=== PATIENT | female | born 1955 | race African-American/Black ===

== ENCOUNTER 2020-09-30 19:38 | Inpatient (IN) | payer OTHER ==
[2020-09-30] MEDS: SODIUM CHLORIDE 1,000 ML IV SCH (20:09)
[2020-09-30] MEDS ORDERED: ASPIRIN 81 MG CHEWABLE TABLETS PO ONE (20:14)
[2020-09-30] MEDS ORDERED: ASPIRIN 81 MG CHEWABLE TABLETS ONE (20:19)
[2020-09-30 20:39] LABS: BASO % 0.5 % (0-2.0); EOS % 0.6 % (0-4.5); HEMATOCRIT 26.9 % (32.4-45.2); HEMOGLOBIN 8.5 GM/dL (10.7-15.3); LYMPH % 13.3 % (8-40); MCH 26.3 pg (25.7-33.7); MCHC 31.7 g/dl (32.0-36.0); MEAN CELL VOLUME 83.1 fl (80-96); MEAN PLT VOLUME 8.5 fl (7.5-11.1); MONO % 13.4 % (3.8-10.2); NEUT % 72.2 % (42.8-82.8); PLATELET COUNT 250 K/MM3 (134-434); RBC 3.24 M/mm3 (3.60-5.2); RDW 15.1 % (11.6-15.6); WHITE BLOOD COUNT 11.6 K/mm3 (4.0-10.0)
[2020-09-30 20:45] LABS: INR 1.41 (0.83-1.09); PROTHROMBIN TIME (PATIENT) 17.2 SEC (9.7-13.0)
[2020-09-30 20:48] LABS: ACTIVATED PTT 30.6 SECONDS (25.2-36.5)
[2020-09-30 21:00] LABS: CALCIUM 8.4 mg/dL (8.5-10.1)
[2020-09-30 21:01] LABS: ALBUMIN 3.1 g/dl (3.4-5.0); BLOOD UREA NITROGEN 11.5 mg/dL (7-18)
[2020-09-30 21:03] LABS: CHOLESTEROL 239 mg/dL (50-200)
[2020-09-30 21:04] LABS: CREATININE 1.2 mg/dL (0.55-1.3); TRIGLYCERIDES 104 mg/dL (0-150)
[2020-09-30 21:05] LABS: LDL CHOLESTEROL (ONLY SJRH) 144 mg/dL (5-100)
[2020-09-30 21:06] LABS: BILIRUBIN,TOTAL 0.8 mg/dL (0.2-1); HDL CHOLESTEROL 67 mg/dL (40-60); TOT PROT 8.7 g/dl (6.4-8.2)
[2020-10-01] MEDS ORDERED: ARTIFICIAL TEARS (POLYVINYL ALCOHOL) OPTH DROPS OU PRN (05:21)
[2020-10-01 08:58] LABS: BASO % 0.6 % (0-2.0); EOS % 0.7 % (0-4.5); HEMATOCRIT 25.6 % (32.4-45.2); HEMOGLOBIN 8.2 GM/dL (10.7-15.3); LYMPH % 12.5 % (8-40); MCH 26.8 pg (25.7-33.7); MCHC 32.2 g/dl (32.0-36.0); MEAN CELL VOLUME 83.3 fl (80-96); MEAN PLT VOLUME 8.7 fl (7.5-11.1); MONO % 14.6 % (3.8-10.2); NEUT % 71.6 % (42.8-82.8); PLATELET COUNT 231 K/MM3 (134-434); RBC 3.07 M/mm3 (3.60-5.2); RDW 15.1 % (11.6-15.6); WHITE BLOOD COUNT 10.6 K/mm3 (4.0-10.0)
[2020-10-01 09:00] LABS: CORRECTED WBC 0.01 K/mm3
[2020-10-01 09:12] LABS: POTASSIUM 3.9 mmol/L (3.5-5.1)
[2020-10-01 09:14] LABS: ALBUMIN 2.8 g/dl (3.4-5.0); BLOOD UREA NITROGEN 10.9 mg/dL (7-18); MAGNESIUM 2.2 mg/dL (1.8-2.4)
[2020-10-01 09:19] LABS: BILIRUBIN,TOTAL 0.7 mg/dL (0.2-1); TOT PROT 7.7 g/dl (6.4-8.2)
[2020-10-01] MEDS ORDERED: PT OWN MED DRAWER 7, Y5N ONE (10:19)
[2020-10-01] MEDS: METHIMAZOLE 10 MG TABLET (FP) PO SCH ×2 (11:08→22:58)
[2020-10-01] MEDS: SODIUM CHLORIDE 1,000 ML IV SCH (20:10)
[2020-10-01] MEDS: ATORVASTATIN CA 80 MG TABLET (FP) PO SCH (22:58)
[2020-10-02 05:05] VITALS: BMI 36.4
[2020-10-02] MEDS: METHIMAZOLE 10 MG TABLET (FP) PO SCH ×2 (10:32→21:12)
[2020-10-02] MEDS: APIXABAN 5 MG TABLET PO SCH (21:12)
[2020-10-02] MEDS: ATORVASTATIN CA 80 MG TABLET (FP) PO SCH (21:12)
[2020-10-03 07:59] LABS: HEMATOCRIT 24.3 % (32.4-45.2); HEMOGLOBIN 7.9 GM/dL (10.7-15.3); MCH 26.9 pg (25.7-33.7); MCHC 32.4 g/dl (32.0-36.0); MEAN PLT VOLUME 8.9 fl (7.5-11.1); PLATELET COUNT 218 K/MM3 (134-434); RBC 2.93 M/mm3 (3.60-5.2); RDW 15.5 % (11.6-15.6); WHITE BLOOD COUNT 6.9 K/mm3 (4.0-10.0)
[2020-10-03 08:20] LABS: POTASSIUM 4.1 mmol/L (3.5-5.1)
[2020-10-03 08:27] LABS: ALBUMIN 2.6 g/dl (3.4-5.0); CALCIUM 8.3 mg/dL (8.5-10.1)
[2020-10-03 08:31] LABS: CREATININE 0.9 mg/dL (0.55-1.3)
[2020-10-03 08:32] LABS: TOT PROT 7.2 g/dl (6.4-8.2)
[2020-10-03 08:34] LABS: BILIRUBIN,TOTAL 1.4 mg/dL (0.2-1)
[2020-10-03] MEDS: APIXABAN 5 MG TABLET PO SCH ×2 (10:59→21:46)
[2020-10-03] MEDS: METHIMAZOLE 10 MG TABLET (FP) PO SCH (10:59)
[2020-10-03] MEDS: metoPROLOL SUCCINATE 25 MG TAB.SR.24H (FP) PO SCH (11:48)
[2020-10-03] MEDS: ATORVASTATIN CA 80 MG TABLET (FP) PO SCH (21:46)
[2020-10-04 08:47] LABS: BASO % 0.9 % (0-2.0); EOS % 3.7 % (0-4.5); HEMATOCRIT 24.2 % (32.4-45.2); HEMOGLOBIN 7.8 GM/dL (10.7-15.3); LYMPH % 17.9 % (8-40); MCH 26.7 pg (25.7-33.7); MCHC 32.4 g/dl (32.0-36.0); MEAN CELL VOLUME 82.5 fl (80-96); MEAN PLT VOLUME 8.5 fl (7.5-11.1); MONO % 18.2 % (3.8-10.2); NEUT % 59.3 % (42.8-82.8); PLATELET COUNT 229 K/MM3 (134-434); RBC 2.93 M/mm3 (3.60-5.2); RDW 15.7 % (11.6-15.6)
[2020-10-04] MEDS: APIXABAN 5 MG TABLET PO SCH (09:37)
[2020-10-04] MEDS: metoPROLOL SUCCINATE 25 MG TAB.SR.24H (FP) PO SCH (09:37)
[2020-10-04 10:47] VITALS: BP 138/82; PULSE 90; TEMP 98.2
[2020-10-05] MEDS ORDERED: ASPIRIN 81 MG CHEWABLE TABLETS PO SCH (10:00)
== END 2020-10-04 15:41 | disposition home or self-care (01) | DRG 65 ==
LOC: JER 19:38 → JERBED 20:13 → J4W 10-01 21:51
PROVIDERS: ADMIT Internal Medicine; ATTEND Internal Medicine
DX: I63.9 Cerebral infarction, unspecified (principal); I24.8 Other forms of acute ischemic heart disease; G93.9 Disorder of brain, unspecified; I10 Essential (primary) hypertension; E05.90 Thyrotoxicosis, unspecified without thyrotoxic crisis or storm; R47.1 Dysarthria and anarthria; R77.8 Other specified abnormalities of plasma proteins; R29.704 NIHSS score 4; Z20.822 Contact with and (suspected) exposure to COVID-19; N95.0 Postmenopausal bleeding; R19.00 Intra-abdominal and pelvic swelling, mass and lump, unspecified site; E66.9 Obesity, unspecified; Z68.36 Body mass index [BMI] 36.0-36.9, adult; E78.5 Hyperlipidemia, unspecified; I48.0 Paroxysmal atrial fibrillation; I65.29 Occlusion and stenosis of unspecified carotid artery
CPT/HCPCS: 36415; 70450-TC; 70498-TC; 70551-TC; 71045-TC-FY; 76856-TC; 80053; 80061; 82550; 82553; 82962; 83721; 83735; 84439; 84443; 84484; 85025; 85027; 85610; 85730; 86850; 86900; 86901; 93005; 93010; 93306-TC; 93880-TC; 93970-TC; 97116-GP; 97161-GP; 99285-25; C9803; Q9967; U0003